=== PATIENT | female | born 1995 ===

== ENCOUNTER 2022-01-24 11:04 | Emergency (ER) | payer SELFPAY ==
[~2022-01-24] VITALS: Ht 152.4 cm; Wt 45.4 kg
--- NOTE | 2022-01-24 11:28 | ED General ---
General Stated Complaint: HEADACHE Source of Information: Patient Exam Limitations: No Limitations History of Present Illness Date Seen by Provider: Jan 24, 2022 Time Seen by Provider: 11:27 Initial Comments To ER by private vehicle from [facility] with reports of headache nausea vomiting onset this morning. She had a seizure this morning. She had a seizure yesterday. She has epilepsy. She moved here from [facility] about a month ago. While there she took medications for epilepsy but has not yet established with primary care and [facility] to get any medications for seizure disorder. Her medications were carbamazepine 400 mg twice a day and "Hidantin" (phenytoin) 800mg at [place]. 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 Timing/Duration: 1-2 Days Severity: Moderate Associated Systoms: Headaches, Nausea/Vomiting Allergies and Home Medications Allergies Coded Allergies: No Known Drug Allergies (Unverified , 01/24/22) Patient Home Medication List Home Medication List Reviewed: Yes Carbamazepine (Tegretol) 200 Mg Tablet, 400 MG PO BID Prescribed by: RORY CEDENO on 01/24/22 1404 Divalproex Sodium (Depakote) 250 Mg Tablet.dr, 250 MG PO BID Prescribed by: RORY CEDENO on 01/24/22 1404 Discontinued Medications Divalproex Sodium (Depakote) 250 Mg Tablet.dr, 250 MG PO BID Prescribed by: RORY CEDENO on 01/24/22 1136 Review of Systems Review of Systems Constitutional: see HPI EENTM: see HPI Respiratory: no symptoms reported Cardiovascular: no symptoms reported Genitourinary: no symptoms reported Musculoskeletal: no symptoms reported Skin: no symptoms reported Psychiatric/Neurological: See HPI, Headache Hematologic/Lymphatic: No Symptoms Reported Physical Exam Vital Signs Vital Signs - First Documented 01/24/22 11:10 Temp 36.1 Pulse 103 Resp 18 B/P (MAP) 107/65 (79) Pulse Ox 100 O2 Delivery Room Air Capillary Refill : Height, Weight, BMI Height: '" Weight: lbs. oz. kg; BMI Method: General Appearance: No Apparent Distress, WD/WN, Thin, Other (Alert and oriented tachypneic) Eyes: Bilateral Eye Normal Inspection, Bilateral Eye PERRL, Bilateral Eye EOMI Neck: Full Range of Motion, Normal Inspection Respiratory: No Accessory Muscle Use, No Respiratory Distress Cardiovascular: Regular Rate, Rhythm, Normal Peripheral Pulses Gastrointestinal: Normal Bowel Sounds, Non Tender, Soft Extremity: Normal Capillary Refill, Normal Inspection Neurologic/Psychiatric: Alert, Oriented x3 Skin: Normal Color, Warm/Dry Progress/Results/Core Measures Suspected Sepsis SIRS Temperature: Pulse: Respiratory Rate: Laboratory Tests 01/24/22 11:30: White Blood Count 13.3H Blood Pressure / Mean: Laboratory Tests 01/24/22 11:30: Platelet Count 385 01/24/22 13:09: Creatinine 0.60, Total Bilirubin 0.3 Results/Orders Lab Results Laboratory Tests Test 01/24/22 11:30 01/24/22 13:09 01/24/22 13:12 Range/Units White Blood Count 13.3 H 4.3-11.0 10^3/uL Red Blood Count 4.61 3.80-5.11 10^6/uL Hemoglobin 13.6 11.5-16.0 g/dL Hematocrit 40 35-52 % Mean Corpuscular Volume 88 80-99 fL Mean Corpuscular Hemoglobin 30 25-34 pg Mean Corpuscular Hemoglobin Concent 34 32-36 g/dL Red Cell Distribution Width 12.5 10.0-14.5 % Platelet Count 385 130-400 10^3/uL Mean Platelet Volume 8.7 L 9.0-12.2 fL Immature Granulocyte % (Auto) 0 % Neutrophils (%) (Auto) 74 42-75 % Lymphocytes (%) (Auto) 17 12-44 % Monocytes (%) (Auto) 8 0-12 % Eosinophils (%) (Auto) 0 0-10 % Basophils (%) (Auto) 0 0-10 % Neutrophils # (Auto) 9.9 H 1.8-7.8 10^3/uL Lymphocytes # (Auto) 2.2 1.0-4.0 10^3/uL Monocytes # (Auto) 1.1 H 0.0-1.0 10^3/uL Eosinophils # (Auto) 0.1 0.0-0.3 10^3/uL Basophils # (Auto) 0.0 0.0-0.1 10^3/uL Immature Granulocyte # (Auto) 0.1 0.0-0.1 10^3/uL Serum Test, Qualitative NEGATIVE NEGATIVE Influenza Type A (RT-PCR) Not Detected Not Detecte Influenza Type B (RT-PCR) Not Detected Not Detecte SARS-CoV-2 RNA (RT-PCR) Not Detected Not Detecte Sodium Level 137 135-145 MMOL/L Potassium Level 3.9 3.6-5.0 MMOL/L Chloride Level 105 98-107 MMOL/L Carbon Dioxide Level 24 21-32 MMOL/L Anion Gap 8 5-14 MMOL/L Blood Urea Nitrogen 6 L 7-18 MG/DL Creatinine 0.60 0.60-1.30 MG/DL Estimat Glomerular Filtration Rate 128 BUN/Creatinine Ratio 10 Glucose Level 100 70-105 MG/DL Calcium Level 9.2 8.5-10.1 MG/DL Corrected Calcium 9.3 8.5-10.1 MG/DL Total Bilirubin 0.3 0.1-1.0 MG/DL Aspartate Amino Transf (AST/SGOT) 13 5-34 U/L Alanine Aminotransferase (ALT/SGPT) 18 0-55 U/L Alkaline Phosphatase 77 40-136 U/L Total Protein 6.6 6.4-8.2 GM/DL Albumin 3.9 3.2-4.5 GM/DL Urine Color YELLOW Urine Clarity CLEAR Urine pH 6.5 5-9 Urine Specific [place] <=1.005 1.016-1.022 Urine Protein NEGATIVE NEGATIVE Urine Glucose (UA) NEGATIVE NEGATIVE Urine Ketones NEGATIVE NEGATIVE Urine Nitrite POSITIVE H NEGATIVE Urine Bilirubin NEGATIVE NEGATIVE Urine Urobilinogen 0.2 < = 1.0 MG/DL Urine Leukocyte Esterase 1+ H NEGATIVE Urine RBC (Auto) NEGATIVE NEGATIVE Urine RBC NONE /HPF Urine WBC 5-10 H /HPF Urine Squamous Epithelial Cells 10-25 H /HPF Urine Crystals NONE /LPF Urine Bacteria LARGE H /HPF Urine Casts NONE /LPF Urine Mucus NEGATIVE /LPF Urine Yeast FEW H /HPF Urine Culture Indicated YES Urine Opiates Screen NEGATIVE NEGATIVE Urine Oxycodone Screen NEGATIVE NEGATIVE Urine Methadone Screen NEGATIVE NEGATIVE Urine Propoxyphene Screen NEGATIVE NEGATIVE Urine Barbiturates Screen POSITIVE H NEGATIVE Ur Tricyclic Antidepressants Screen NEGATIVE NEGATIVE Urine Phencyclidine Screen NEGATIVE NEGATIVE Urine Amphetamines Screen NEGATIVE NEGATIVE Urine Methamphetamines Screen NEGATIVE NEGATIVE Urine Benzodiazepines Screen NEGATIVE NEGATIVE Urine Cocaine Screen NEGATIVE NEGATIVE Urine Cannabinoids Screen NEGATIVE NEGATIVE My Orders Orders - RORY CEDENO APRN Ct Head Wo (01/24/22 11:24) Cbc With Automated Diff (01/24/22 11:24) Comprehensive Metabolic Panel (01/24/22 11:24) Ua Culture If Indicated (01/24/22 11:24) Ed Iv/Invasive Line Start (01/24/22 11:24) Accucheck Stat ONCE (01/24/22 11:24) Covid 19 Inhouse Test (01/24/22 11:24) Influenza A And B By Pcr (01/24/22 11:24) Drug Screen Stat (Urine) (01/24/22 11:24) Hcg,Qualitative Serum (01/24/22 11:24) Lactated Ringers (Lr 1000 Ml Iv Solution (01/24/22 11:30) Lorazepam Injection (Ativan Injection) (01/24/22 11:30) Ondansetron Injection (Zofran Injectio (01/24/22 11:30) Ketorolac Injection (Toradol Injection) (01/24/22 11:30) Acetaminophen Tablet (Tylenol Tablet) (01/24/22 14:15) Urine Culture (01/24/22 13:12) Medications Given in ED Current Medications Medications Dose Ordered Sig/Todd Route Start Time Stop Time Status Last Admin Dose Admin Acetaminophen 1,000 mg ONCE ONCE PO 01/24/22 14:15 01/24/22 14:16 DC 01/24/22 14:16 1,000 MG Ketorolac Tromethamine 15 mg ONCE ONCE IVP 01/24/22 11:30 01/24/22 11:31 DC 01/24/22 11:39 15 MG Lorazepam 0.5 mg ONCE PRN IVP 01/24/22 11:30 01/24/22 11:39 0.5 MG Ondansetron HCl 8 mg ONCE ONCE IVP 01/24/22 11:30 01/24/22 11:31 DC 01/24/22 11:39 8 MG Vital Signs/I&O 01/24/22 11:10 Temp 36.1 Pulse 103 Resp 18 B/P (MAP) 107/65 (79) Pulse Ox 100 O2 Delivery Room Air Capillary Refill : Departure Communication (Admissions) 1402-States that she is feeling much better. NAME: BARBER FOSTER [facility] REC#: [id number] PT STATUS: REG ER : 1995 PHYSICIAN: RORY CEDENO BRIM FLEXER ADMIT DATE: 01/24/22/ER Draft Date of Exam:01/24/22 CT HEAD WO PROCEDURE: CT head without contrast. TECHNIQUE: Multiple contiguous axial images were obtained through the brain without the use of intravenous contrast. Auto Exposure Controls were utilized during the CT exam to meet ALARA standards for radiation dose reduction. DATE: January 24, 2022. COMPARISON: None. INDICATION: 26-year-old female, headache and vomiting. FINDINGS: The ventricles and cerebral spinal fluid spaces are of normal size and configuration for the patient's age. There is no mass effect or midline shift. There is no acute intracranial hemorrhage. There is no abnormal extra-axial fluid collection. The visualized portions of the paranasal sinuses, mastoid air cells, and middle ears are well aerated. IMPRESSION: No identified acute intracranial abnormality. Dictated on workstation # [id number] Dict: 01/24/22 1233 Trans: 01/24/22 1249 [id number] Interpreted by: GARCIA MATHIAS MD Electronically signed by: Impression Primary Impression: Epilepsy Additional Impression: Urinary tract infection Disposition: HOME, SELF-CARE Condition: Stable Departure-Patient Inst. Decision time for Depature: 11:36 Referrals: DELFIN VERDIN,LOCAL PHYSICIAN (PCP) Primary Care Physician Patient Instructions: Epilepsy in Adults Add. Discharge Instructions: 1. Call Dr. Verdin's clinic today to make an appointment to be seen for follow-up. Try to make the appointment for sometime in the next 2 weeks but call the office today to make the appointment. Scripts Cefuroxime Axetil (Cefuroxime) 250 Mg Tablet 250 MG PO BID, #10 TAB Prov: RORY CEDENO BRIM FLEXER 01/24/22 Carbamazepine (Tegretol) 200 Mg Tablet 400 MG PO BID, #120 TAB Prov: RORY CEDENO APRN 01/24/22 Divalproex Sodium (Depakote) 250 Mg Tablet. 250 MG PO BID, #20 TAB Prov: RORY CEDENO APRN 01/24/22 RORY CEDENO APRN Jan 24, 2022 11:28
[2022-01-24] MEDS ORDERED: LORazepam INJ 2 MG/ML (ATIVAN) VIAL IVP PRN (11:30)
[2022-01-24] MEDS ORDERED: KETOROLAC 30 MG/ML VIAL IVP ONE (11:30)
[2022-01-24] MEDS ORDERED: LACTATED RINGERS 1,000 ML IV SCH (11:30)
[2022-01-24] MEDS ORDERED: ONDANSETRON 4 MG/2 ML (SDV) Z0FRAN IVP ONE (11:30)
[2022-01-24] MEDS ORDERED: DIVA250T2 PO ×2 (11:36→14:04)
[2022-01-24 11:39] LABS: BASOPHILS % (AUTO) 0 % (0-10); EOSINOPHILS # (AUTO) 0.1 10^3/uL (0.0-0.3); EOSINOPHILS % (AUTO) 0 % (0-10); HEMATOCRIT 40 % (35-52); HEMOGLOBIN 13.6 g/dL (11.5-16.0); LYMPHOCYTES # (AUTO) 2.2 10^3/uL (1.0-4.0); LYMPHOCYTES % (AUTO) 17 % (12-44); MEAN CORPUSCULAR HEMOGLOBIN 30 pg (25-34); MEAN CORPUSCULAR HGB CONC 34 g/dL (32-36); MEAN CORPUSCULAR VOLUME 88 fL (80-99); MEAN PLATELET VOLUME 8.7 fL (9.0-12.2); MONOCYTES # (AUTO) 1.1 10^3/uL (0.0-1.0); MONOCYTES % (AUTO) 8 % (0-12); NEUTROPHILS # (AUTO) 9.9 10^3/uL (1.8-7.8); NEUTROPHILS % (AUTO) 74 % (42-75); PLATELET COUNT 385 10^3/uL (130-400); WHITE BLOOD COUNT 13.3 10^3/uL (4.3-11.0)
--- NOTE | 2022-01-24 12:49 | Diagnostic Imaging Report ---
PROCEDURE: CT head without contrast. TECHNIQUE: Multiple contiguous axial images were obtained through the brain without the use of intravenous contrast. Auto Exposure Controls were utilized during the CT exam to meet ALARA standards for radiation dose reduction. DATE: January 24, 2022. COMPARISON: None. INDICATION: 26-year-old female, headache and vomiting. FINDINGS: The ventricles and cerebral spinal fluid spaces are of normal size and configuration for the patient's age. There is no mass effect or midline shift. There is no acute intracranial hemorrhage. There is no abnormal extra-axial fluid collection. The visualized portions of the paranasal sinuses, mastoid air cells, and middle ears are well aerated. IMPRESSION: No identified acute intracranial abnormality. Dictated by: Dictated on workstation # [id number]
[2022-01-24 13:28] LABS: ALBUMIN 3.9 GM/DL (3.2-4.5); POTASSIUM 3.9 MMOL/L (3.6-5.0)
[2022-01-24 13:29] LABS: BILIRUBIN,URINE NEGATIVE (NEGATIVE); CLARITY,URINE CLEAR; COLOR,URINE YELLOW; GLUCOSE, URINE (UA) NEGATIVE (NEGATIVE); KETONES,URINE NEGATIVE (NEGATIVE); LEUKOCYTE ESTERASE ,URINE 1+ (NEGATIVE); NITRITE,URINE POSITIVE (NEGATIVE); PH,URINE 6.5 (5-9); PROTEIN,URINE NEGATIVE (NEGATIVE)
[2022-01-24 13:30] LABS: CALCIUM 9.2 MG/DL (8.5-10.1)
[2022-01-24 13:31] LABS: TOTAL PROTEIN 6.6 GM/DL (6.4-8.2)
[2022-01-24 13:33] LABS: BILIRUBIN,TOTAL 0.3 MG/DL (0.1-1.0)
[2022-01-24 13:34] LABS: CREATININE SERUM 0.6 MG/DL (0.60-1.30)
[2022-01-24 13:56] LABS: AMPHETAMINE SCREEN, URINE NEGATIVE (NEGATIVE); BARBITURATE SCREEN URINE POSITIVE (NEGATIVE); BENZODIAZEPINES SCREEN URINE NEGATIVE (NEGATIVE); CANNABINOID SCREEN, URINE NEGATIVE (NEGATIVE); COCAINE SCREEN URINE NEGATIVE (NEGATIVE); METHADONE STAT NEGATIVE (NEGATIVE); METHAMPHETAMINE SCREEN URINE S NEGATIVE (NEGATIVE); OPIATE SCREEN URINE NEGATIVE (NEGATIVE); OXYCODONE STAT NEGATIVE (NEGATIVE); PROPOXYPHENE STAT NEGATIVE (NEGATIVE); TRICYCLIC ANTIDEPRESSANTS SCRE NEGATIVE (NEGATIVE)
[2022-01-24] MEDS ORDERED: CARB200T PO (14:04)
[2022-01-24 14:07] LABS: BACTERIA,URINE LARGE /HPF
[2022-01-24 14:08] LABS: YEAST,URINE FEW /HPF
[2022-01-24] MEDS ORDERED: ACETAMINOPHEN 500 MG TAB (TYLENOL) PO ONE (14:15)
[2022-01-24 14:20] VITALS: BP 112/70
[2022-01-24] MEDS ORDERED: CEFU250T80 PO (14:23)
== END 2022-01-24 14:20 | disposition home or self-care (01) ==
LOC: ER 11:06
DX: G40.909 Epilepsy, unspecified, not intractable, without status epilepticus (principal); N39.0 Urinary tract infection, site not specified; Z20.822 Contact with and (suspected) exposure to COVID-19
CPT/HCPCS: 36415; 70450; 80053; 80306; 81000; 84703; 85025; 87077; 87088; 87186; 87636